=== PATIENT | female | born 1930 | race Caucasian/White ===

== ENCOUNTER → 2016-10-23 | Outpatient (CLI) | payer MEDICARE, OTHER ==
[2016-04-27 08:21] VITALS: BP 123/69
[~2016-10-23] MED LIST: ACET500T68 PO; ALPR0.25 PO; ATEN25TA PO; BUSP15TA PO; CALC300T5 PO; CIPR500T94 PO; CITA20TA9 PO; CLOT15CR4 TP; DOCU-27 PO; HYDR453.3 TP; L. R1CAP PO; MELA3TAB PO; POLY17PO5 PO; PROC10TA57 PO
[2016-10-23 08:23] LABS: BILIRUBIN,URINE NEG (NEG); CLARITY,URINE CLEAR; COLOR,URINE STRAW; GLUCOSE,URINE NEG (NEG)
[2016-10-23 08:24] LABS: BACTERIA,URINE FEW /HPF (0-FEW); NITRITE,URINE NEG (NEG); RBC,URINE OCC /HPF (0-2); UROBILINOGEN,URINE 0.2 mg/dL (0.2 mg/dL)
[2016-10-23 08:25] LABS: SQUAMOUS EPITHELIAL CELL,UR OCC /LPF
== END | disposition home or self-care (01) ==
LOC: SPEC 07:41
PROVIDERS: ATTEND Specialist
DX: N39.0 Urinary tract infection, site not specified (principal)
CPT/HCPCS: 81001

== ENCOUNTER → 2016-12-25 | Outpatient (CLI) | payer MEDICARE, OTHER ==
[2016-04-27 08:21] VITALS: BP 123/69
[~2016-12-25] MED LIST changes: +CULTURELLE CAP1 EACH PO; +DOCU-109 PO; -DOCU-27 PO; -L. R1CAP PO; -MELA3TAB PO; +MELA3TAB2 PO
[2016-12-25 11:06] LABS: BASO % 1 % (0-3); EOS # 0.3 x10^3/uL (0.0-0.7); EOS % 6 % (0-3); HEMATOCRIT 39.7 % (36.0-47.0); HEMOGLOBIN 13.4 g/dL (12.0-15.5); LYMPH # 0.7 x10^3/uL (1.0-4.8); LYMPH % 16 % (24-48); MEAN CORPUSCULAR HEMOGLOBIN 32 pg (25-35); MEAN CORPUSCULAR HGB CONC 34 g/dL (31-37); MEAN CORPUSCULAR VOLUME 96 fL (79-100); MONO # 0.4 x10^3/uL (0.0-1.1); MONO % 11 % (0-9); NEUT # 2.8 x10^3uL (1.8-7.7); NEUT % 66 % (31-73); PLATELET COUNT 135 x10^3/uL (140-400); RED BLOOD COUNT 4.14 x10^6/uL (3.50-5.40); WHITE BLOOD COUNT 4.2 x10^3/uL (4.0-11.0)
[2016-12-25 11:16] LABS: ALBUMIN 3.5 g/dL (3.4-5.0); ALBUMIN/GLOBULIN RATIO 1.1 (1.0-1.7); CALCIUM 9.1 mg/dL (8.5-10.1); CREATININE 0.9 mg/dL (0.6-1.0); GFR 59.1; POTASSIUM 4.1 mmol/L (3.5-5.1); TOTAL BILIRUBIN 0.4 mg/dL (0.2-1.0); TOTAL PROTEIN 6.6 g/dL (6.4-8.2)
== END | disposition home or self-care (01) ==
LOC: SPEC 10:20
PROVIDERS: ATTEND Specialist
DX: D69.49 Other primary thrombocytopenia (principal); E87.1 Hypo-osmolality and hyponatremia
CPT/HCPCS: 36415; 80053; 82306; 83735; 84443; 85027

== ENCOUNTER → 2017-01-13 | Outpatient (CLI) | payer MEDICARE, OTHER ==
[2016-04-27 08:21] VITALS: BP 123/69
[2017-01-14 01:07] LABS: HEMOGLOBIN A1C 4.7 % (4.8-5.6)
== END | disposition home or self-care (01) ==
LOC: SPEC 07:54
PROVIDERS: ATTEND Specialist
DX: I49.9 Cardiac arrhythmia, unspecified (principal); E63.9 Nutritional deficiency, unspecified; E87.1 Hypo-osmolality and hyponatremia
CPT/HCPCS: 36415; 80061; 83036

== ENCOUNTER 2017-06-11 08:33 | Emergency (ER) | payer MEDICARE, OTHER ==
[~2017-06-11] VITALS: Ht 160 cm; Wt 58.2 kg
[2017-06-11] MEDS ORDERED: IV NORMAL SALINE 1,000ML 1,000 ML IV SCH (08:44)
--- NOTE | 2017-06-11 08:51 | PHYS DOC ---
Past History Past Medical History: Arthritis, Cancer, UTI, Other Past Surgical History: Appendectomy, Other Alcohol Use: None Drug Use: None Adult General Chief Complaint Chief Complaint: BACK PAIN OR INJURY HPI HPI Patient is a 87 year old female who presents with complaint of right-sided back and flank pain. Patient states her symptoms started 2 days ago and have progressively worsened. Patient states that her pain became more severe this morning upon awakening states that she is hardly unable to move due to the severity of her pain. Patient does not remember lifting anything heavy and has not had a fall or other trauma to the affected area since onset of symptoms. Patient states that she has had associated nausea but denies dysuria or hematuria. The patient has been taking [id number] medication for her pain with no relief in symptoms. Patient denies chest pain, shortness of breath, abdominal pain, or diarrhea. Patient has had no known fevers. Patient rated her pain as "14 out of 10." Review of Systems Review of Systems Constitutional: Denies fever or chills [] Eyes: Denies change in visual acuity, redness, or eye pain [] HENT: Denies nasal congestion or sore throat [] Respiratory: Denies cough or shortness of breath [] Cardiovascular: Denies chest pain or edema[] GI: Nausea, denies abdominal pain, vomiting, bloody stools or diarrhea [] : Denies dysuria or hematuria [] Musculoskeletal: Right-sided back and flank pain[] Integument: Denies rash or skin lesions [] Neurologic: Denies headache, focal weakness or sensory changes [] All other systems were reviewed and found to be within normal limits, except as documented in this note. Current Medications Current Medications Current Medications Medications (Trade) Dose Ordered Sig/Kelli Start Time Stop Time Status Last Admin Dose Admin Fentanyl Citrate (Fentanyl 2ml Vial) 50 mcg PRN Q15MIN PRN 06/11/17 08:45 06/12/17 08:44 UNV Metoclopramide HCl (Reglan Vial) 10 mg 1X ONCE 06/11/17 08:45 06/11/17 08:46 UNV Allergies Allergies Allergies Coded Allergies Type Severity Reaction Last Updated Verified Influenza Virus Vaccines Allergy Severe 04/24/16 Yes carbamide peroxide Allergy Severe 04/23/16 Yes pneumococcal vaccine Allergy Severe 04/24/16 Yes sulfite Allergy Severe 04/23/16 Yes Penicillins Allergy Intermediate 04/24/16 Yes aspirin Allergy Intermediate 04/24/16 Yes ibuprofen Allergy Intermediate 04/24/16 Yes ondansetron Allergy Intermediate Unknown 01/30/16 Yes promethazine Allergy Intermediate 04/24/16 No diphenhydramine Adverse Reaction Intermediate 04/24/16 Yes Uncoded Allergies Type Severity Reaction Last Updated Verified COLD AND COUGH MED Allergy Unknown 01/30/16 Physical Exam Physical Exam Constitutional: Alert, afebrile, appears in moderate to severe discomfort. [] HENT: Normocephalic, atraumatic, bilateral external ears normal, oropharynx moist, no oral exudates, nose normal. [] Eyes: PERRLA, EOMI, conjunctiva normal, no discharge. [] Neck: Normal range of motion, no tenderness, supple, no stridor. [] Cardiovascular:Heart rate regular rhythm, no murmur [] Lungs & Thorax: Bilateral breath sounds clear to auscultation [] Abdomen: Bowel sounds normal, soft, no tenderness, no masses, no pulsatile masses. [] Skin: Warm, dry, no erythema, no rash. [] Back: Scoliotic curvature of the spine, no midline tenderness, right CVA tenderness present, no flank ecchymosis. [] Extremities: No tenderness, no cyanosis, no clubbing, ROM intact, no edema. [] Neurologic: Alert and oriented X 3, normal motor function, normal sensory function, no focal deficits noted. [] Current Patient Data Vital Signs Vital Signs Date Time Temp Pulse Resp B/P (MAP) Pulse Ox O2 Delivery O2 Flow Rate FiO2 06/11/17 09:09 20 94 Room Air 06/11/17 08:33 97.7 73 Lab Results Laboratory Tests Test 06/11/17 09:01 06/11/17 10:45 White Blood Count 5.6 x10^3/uL Red Blood Count 4.48 x10^6/uL Hemoglobin 14.7 g/dL Hematocrit 42.5 % Mean Corpuscular Volume 95 fL Mean Corpuscular Hemoglobin 33 pg Mean Corpuscular Hemoglobin Concent 35 g/dL Red Cell Distribution Width 12.7 % Platelet Count 144 x10^3/uL Neutrophils (%) (Auto) 74 % Lymphocytes (%) (Auto) 11 % Monocytes (%) (Auto) 10 % Eosinophils (%) (Auto) 4 % Basophils (%) (Auto) 1 % Neutrophils # (Auto) 4.2 x10^3uL Lymphocytes # (Auto) 0.6 x10^3/uL Monocytes # (Auto) 0.6 x10^3/uL Eosinophils # (Auto) 0.2 x10^3/uL Basophils # (Auto) 0.0 x10^3/uL Sodium Level 132 mmol/L Potassium Level 3.7 mmol/L Chloride Level 94 mmol/L Carbon Dioxide Level 31 mmol/L Anion Gap 7 Blood Urea Nitrogen 16 mg/dL Creatinine 0.8 mg/dL Estimated GFR (Cockcroft-Gault) 67.5 BUN/Creatinine Ratio 20 Glucose Level 143 mg/dL Calcium Level 9.3 mg/dL Total Bilirubin 0.5 mg/dL Aspartate Amino Transf (AST/SGOT) 28 U/L Alanine Aminotransferase (ALT/SGPT) 22 U/L Alkaline Phosphatase 95 U/L Total Protein 7.4 g/dL Albumin 3.6 g/dL Albumin/Globulin Ratio 0.9 Lipase 127 U/L Urine Collection Type Void Urine Color Straw Urine Clarity Cloudy Urine pH 8.0 Urine Specific [place] 1.020 Urine Protein Neg Urine Glucose (UA) Neg mg/dL Urine Ketones (Stick) Neg mg/dL Urine Blood Trace Urine Nitrite Neg Urine Bilirubin Neg Urine Urobilinogen Dipstick 0.2 mg/dL Urine Leukocyte Esterase Neg Urine RBC 3-5 /HPF Urine WBC Occ /HPF Urine Squamous Epithelial Cells Occ /LPF Urine Amorphous Sediment Present /HPF Urine Bacteria Few /HPF Urine Mucus Slight /LPF Current Medications Medications (Trade) Dose Ordered Sig/Kelli Route PRN Reason Start Time Stop Time Status Last Admin Dose Admin Fentanyl Citrate (Fentanyl 2ml Vial) 50 mcg PRN Q15MIN PRN IV PAIN GREATER THAN 3/10 06/11/17 08:45 06/12/17 08:44 06/11/17 10:36 Sodium Chloride 1,000 ml @ 1,000 mls/hr Q1H IV 06/11/17 08:44 06/11/17 09:43 DC 06/11/17 09:04 Metoclopramide HCl (Reglan Vial) 10 mg 1X ONCE IV 06/11/17 09:10 06/11/17 09:11 DC 06/11/17 09:05 EKG EKG Not performed[] Radiology/Procedures Radiology/Procedures [address] [place] [address] IMAGING REPORT Signed PATIENT: AJAY CAMPBELL ACCOUNT: [id number] : 1930 LOCATION: ER AGE: 87 SEX: F EXAM STATUS: REG ER ORD. PHYSICIAN: CARL GARDNER MD REASON: right flank pain PROCEDURE: CT ABDOMEN PELVIS WO CONTRAST CT of the abdomen and pelvis without contrast, 06/11/2017: History: Right flank and back pain Noncontrast scans were obtained utilizing the renal stone protocol. There are bilateral intrarenal calculi. The largest of these lies on the left and measures 16 x 6 mm. Several small low density renal lesions on the right are compatible with cysts. The kidneys show no evidence of hydronephrosis. The ureters are not dilated. No ureteral calculus is identified. There are multiple vascular calcifications in the pelvis. The urinary bladder is unremarkable. The heart is enlarged. There are multiple coronary artery calcifications. There is moderate streaky atelectasis in scarring in the lung bases. There is a small cyst in the lateral aspect of the right lobe of the liver. The unopacified liver is otherwise unremarkable. No gallbladder abnormality is seen. The pancreas cannot be clearly from unopacified bowel. The spleen is of normal size. There is moderate calcific plaquing of the abdominal aorta and its branches without evidence of aneurysm. No abdominal or pelvic adenopathy is seen. The uterus is unremarkable. There are multiple colonic diverticula, most numerous in the sigmoid region. There is a moderate amount of stool in the ascending colon. The appendix is not clearly visualized. No dilated appendix is identified. No free air or free fluid is present in the abdomen or pelvis. There is atrophy of the rectus abdominis musculature, with moderate anterior fascial bulging at the midline. Surgical clips in this region may be secondary to previous hernia repair. There is a small inguinal hernia on the right containing a nonobstructed bowel loop. There is a moderate thoracolumbar scoliosis with multilevel degenerative change. There are multiple lumbar and lower thoracic vertebral body fractures. Vertebroplasty changes are evident at similar findings were present on the study of 01/30/2016. IMPRESSION: 1. Bilateral nonobstructing intrarenal calculi. 2. No obstructing urinary tract calculus is identified. 3. Moderate colonic diverticulosis. 4. Small right inguinal hernia containing a nonobstructed bowel loops. 5. Moderate bibasilar atelectasis. 6. Multiple chronic vertebral compression fractures. 7. Other miscellaneous chronic findings as described above PQRS Compliance Statement: One or more of the following individualized dose reduction techniques were utilized for this examination: 1. Automated exposure control 2. Adjustment of the mA and/or kV according to patient size 3. Use of iterative reconstruction technique DICTATED AND SIGNED BY: AUGUST WEATHERS MD DATE: 06/11/17 0926 CC: CARL GARDNER MD; TITI BIRD MD ~ [] Course & Med Decision Making Course & Med Decision Making Pertinent Labs and Imaging studies reviewed. (See chart for details) Patient was treated with IV fluids, fentanyl, and Zofran in the emergency department. The patient's emergency department workup shows no evidence of acute infection or acute fracture in the back. The patient's symptoms appear consistent with a mid back strain. The patient will be treated with hydrocodone for her symptoms. The patient states that she does not want to be admitted to the hospital and would like to be discharged home or she will continue her care at the [facility]. Advised patient follow-up to primary doctor in 3-4 days for reevaluation and return to emergency department for any worsening symptoms. Patient was understanding and in agreement with treatment plan. Dragon Disclaimer Dragon Disclaimer This electronic medical record was generated, in whole or in part, using a voice recognition dictation system. Departure Departure: Impression: Primary Impression: Back strain Disposition: 01 HOME, SELF-CARE Condition: IMPROVED Referrals: TITI BIRD MD (PCP) Patient Instructions: Back Pain, Adult Additional Instructions: Follow-up to primary doctor in 3-4 days for reevaluation. Return to the emergency department for any worsening symptoms. Scripts Hydrocodone Bit/Acetaminophen (NORCO 5-325 TABLET) 1 Each Tablet 1 TAB PO Q4-6HRS Y for PAIN, #20 TAB Prov: CARL GARDNER MD 06/11/17 Problem Qualifiers Primary Impression: Back strain Encounter type: initial encounter Qualified Codes: S39.012A - Strain of muscle, fascia and tendon of lower back, initial encounter CARL GARDNER MD Jun 11, 2017 08:51
[2017-06-11] MEDS ORDERED: METOCLOPRAMIDE HCL 10 MG/2 ML VIAL. IV ONE (09:10)
[2017-06-11 09:16] LABS: BASO % 1 % (0-3); EOS # 0.2 x10^3/uL (0.0-0.7); EOS % 4 % (0-3); HEMATOCRIT 42.5 % (36.0-47.0); HEMOGLOBIN 14.7 g/dL (12.0-15.5); LYMPH # 0.6 x10^3/uL (1.0-4.8); LYMPH % 11 % (24-48); MEAN CORPUSCULAR HEMOGLOBIN 33 pg (25-35); MEAN CORPUSCULAR HGB CONC 35 g/dL (31-37); MEAN CORPUSCULAR VOLUME 95 fL (79-100); MONO # 0.6 x10^3/uL (0.0-1.1); MONO % 10 % (0-9); NEUT # 4.2 x10^3uL (1.8-7.7); NEUT % 74 % (31-73); PLATELET COUNT 144 x10^3/uL (140-400); RED BLOOD COUNT 4.48 x10^6/uL (3.50-5.40); RED CELL DISTRIBUTION WIDTH 12.7 % (11.5-14.5); WHITE BLOOD COUNT 5.6 x10^3/uL (4.0-11.0)
[2017-06-11 09:26] LABS: ALBUMIN 3.6 g/dL (3.4-5.0); ALBUMIN/GLOBULIN RATIO 0.9 (1.0-1.7); CALCIUM 9.3 mg/dL (8.5-10.1); CREATININE 0.8 mg/dL (0.6-1.0); GFR 67.5; POTASSIUM 3.7 mmol/L (3.5-5.1); TOTAL BILIRUBIN 0.5 mg/dL (0.2-1.0); TOTAL PROTEIN 7.4 g/dL (6.4-8.2)
--- NOTE | 2017-06-11 09:46 | RAD ---
CT of the abdomen and pelvis without contrast, 06/11/2017: History: Right flank and back pain Noncontrast scans were obtained utilizing the renal stone protocol. There are bilateral intrarenal calculi. The largest of these lies on the left and measures 16 x 6 mm. Several small low density renal lesions on the right are compatible with cysts. The kidneys show no evidence of hydronephrosis. The ureters are not dilated. No ureteral calculus is identified. There are multiple vascular calcifications in the pelvis. The urinary bladder is unremarkable. The heart is enlarged. There are multiple coronary artery calcifications. There is moderate streaky atelectasis in scarring in the lung bases. There is a small cyst in the lateral aspect of the right lobe of the liver. The unopacified liver is otherwise unremarkable. No gallbladder abnormality is seen. The pancreas cannot be clearly from unopacified bowel. The spleen is of normal size. There is moderate calcific plaquing of the abdominal aorta and its branches without evidence of aneurysm. No abdominal or pelvic adenopathy is seen. The uterus is unremarkable. There are multiple colonic diverticula, most numerous in the sigmoid region. There is a moderate amount of stool in the ascending colon. The appendix is not clearly visualized. No dilated appendix is identified. No free air or free fluid is present in the abdomen or pelvis. There is atrophy of the rectus abdominis musculature, with moderate anterior fascial bulging at the midline. Surgical clips in this region may be secondary to previous hernia repair. There is a small inguinal hernia on the right containing a nonobstructed bowel loop. There is a moderate thoracolumbar scoliosis with multilevel degenerative change. There are multiple lumbar and lower thoracic vertebral body fractures. Vertebroplasty changes are evident at similar findings were present on the study of 01/30/2016. IMPRESSION: 1. Bilateral nonobstructing intrarenal calculi. 2. No obstructing urinary tract calculus is identified. 3. Moderate colonic diverticulosis. 4. Small right inguinal hernia containing a nonobstructed bowel loops. 5. Moderate bibasilar atelectasis. 6. Multiple chronic vertebral compression fractures. 7. Other miscellaneous chronic findings as described above PQRS Compliance Statement: One or more of the following individualized dose reduction techniques were utilized for this examination: 1. Automated exposure control 2. Adjustment of the mA and/or kV according to patient size 3. Use of iterative reconstruction technique
[2017-06-11 11:05] LABS: AMORPHOUS SEDIMENT,UR PRESENT /HPF; BACTERIA,URINE FEW /HPF (0-FEW); BILIRUBIN,URINE NEG (NEG); CLARITY,URINE CLOUDY; COLOR,URINE STRAW; GLUCOSE,URINE NEG (NEG); NITRITE,URINE NEG (NEG); SQUAMOUS EPITHELIAL CELL,UR OCC /LPF; UROBILINOGEN,URINE 0.2 mg/dL (0.2 mg/dL); WBC,URINE OCC /HPF (0-4)
[2017-06-11] MEDS ORDERED: HYDR-971 PO (11:11)
[2017-06-11 11:17] VITALS: BP 148/95
== END 2017-06-11 11:17 | disposition home or self-care (01) ==
LOC: ER 08:33
DX: S39.012A Strain of muscle, fascia and tendon of lower back, initial encounter (principal); X58.XXXA Exposure to other specified factors, initial encounter; Y93.89 Activity, other specified; Y99.8 Other external cause status; Y92.89 Other specified places as the place of occurrence of the external cause; Z87.440 Personal history of urinary (tract) infections; Z88.6 Allergy status to analgesic agent; Z88.4 Allergy status to anesthetic agent; Z88.0 Allergy status to penicillin; Z88.2 Allergy status to sulfonamides; Z88.7 Allergy status to serum and vaccine; Z88.8 Allergy status to other drugs, medicaments and biological substances
CPT/HCPCS: 36415; 74176; 80053; 81001; 83690; 85025; 96361; 96374; 96375; 96376; 99285; J2765; J3010; J7030

== ENCOUNTER 2018-01-12 15:18 | Inpatient (IN) | payer MEDICARE, OTHER ==
[~2018-01-12] VITALS: Ht 157.5 cm; Wt 62.3 kg
[~2018-01-12 15:18] MED LIST changes: +HYDR-971 PO
[2018-01-12] MEDS ORDERED: IOHEXOL 300 MG/ML 75 ML VIAL. IV ONE (16:30)
--- NOTE | 2018-01-12 16:51 | PHYS DOC ---
Past History Past Medical History: Anxiety, Arthritis, Cancer, Depression, GERD, UTI, Other Past Surgical History: Appendectomy, Tonsillectomy, Other Alcohol Use: None Drug Use: None Adult General Chief Complaint Chief Complaint: ABNORMAL LABS [facility] HPI Patient is an 87-year-old female who presents for evaluation of abnormal lab results. She was seen at Dr. Valentin Bird's office where she was found to have hyponatremia and leukocytosis. She is complaining to me of having several episodes of diarrhea over the last few days and states that she had 6 today. His recent antibiotic use or history of C. difficile infection. She states that she does not want to be admitted to the hospital. She has some generalized abdominal discomfort and states that the diarrhea has caused her to have some rectal discomfort as well. She denies any rectal bleeding. She also denies fevers or chills, nausea or vomiting, chest pain or shortness of breath, or dysuria. Review of Systems Review of Systems Constitutional: Denies fever or chills [] Eyes: Denies change in visual acuity, redness, or eye pain [] HENT: Denies nasal congestion or sore throat [] Respiratory: Denies cough or shortness of breath [] Cardiovascular: No additional information not addressed in HPI [] GI: Denies nausea, vomiting, bloody stools +abd discomfort and diarrhea : Denies dysuria or hematuria [] Musculoskeletal: Denies back pain or joint pain [] Integument: Denies rash or skin lesions [] Neurologic: Denies headache, focal weakness or sensory changes [] Endocrine: Denies polyuria or polydipsia [] All other systems were reviewed and found to be within normal limits, except as documented in this note. Current Medications Current Medications Current Medications Medications (Trade) Dose Ordered Sig/Kelli Start Time Stop Time Status Last Admin Dose Admin Iohexol (Omnipaque 300 Mg/ml) 75 ml 1X ONCE 01/12/18 16:30 01/12/18 16:31 DC Allergies Allergies Allergies Coded Allergies Type Severity Reaction Last Updated Verified Influenza Virus Vaccines Allergy Severe 04/24/16 Yes carbamide peroxide Allergy Severe 04/23/16 Yes pneumococcal vaccine Allergy Severe 04/24/16 Yes sulfite Allergy Severe 04/23/16 Yes Penicillins Allergy Intermediate 04/24/16 Yes aspirin Allergy Intermediate 04/24/16 Yes ibuprofen Allergy Intermediate 04/24/16 Yes ondansetron Allergy Intermediate Unknown 01/30/16 Yes promethazine Allergy Intermediate 04/24/16 No diphenhydramine Adverse Reaction Intermediate 04/24/16 Yes Uncoded Allergies Type Severity Reaction Last Updated Verified COLD AND COUGH MED Allergy Unknown 01/30/16 Physical Exam Physical Exam Constitutional: Well developed, well nourished, no acute distress, non-toxic appearance. [] HENT: Normocephalic, atraumatic, bilateral external ears normal, oropharynx moist, no oral exudates, nose normal. [] Eyes: PERRLA, EOMI, conjunctiva normal, no discharge. [] Neck: Normal range of motion, no tenderness, supple, no stridor. [] Cardiovascular:Heart rate regular rhythm, no murmur [] Lungs & Thorax: Bilateral breath sounds clear to auscultation [] Abdomen: no masses, no pulsatile masses. [] mild generalized abd tenderness, no focal ttp, soft, hyperactive bs, no guarding, no rigidity Skin: Warm, dry, no erythema, no rash. [] Back: No tenderness, no CVA tenderness. [] Extremities: No tenderness, no cyanosis, no clubbing, ROM intact, no edema. [] Neurologic: Alert and oriented X 3, normal motor function, normal sensory function, no focal deficits noted. [] Psychologic: Affect normal, judgement normal, mood normal. [] Current Patient Data Vital Signs Vital Signs Date Time Temp Pulse Resp B/P (MAP) Pulse Ox O2 Delivery O2 Flow Rate FiO2 01/12/18 15:52 98.1 85 22 97 Room Air EKG EKG [] Radiology/Procedures Radiology/Procedures [address] [address] IMAGING REPORT Signed PATIENT: AJAY CAMPBELL ACCOUNT: [id number] : 1930 LOCATION: ER AGE: 87 SEX: F EXAM STATUS: REG ER ORD. PHYSICIAN: FABIOLA IZAGUIRRE DO REASON: abd pain, diarrhea, leukocytosis PROCEDURE: CT ABD PELV W/ IV CONTRST ONLY Indication:ABDOMINAL PAIN, DIARRHEA, NAUSEA, leukocytosis. HX GERD, BRST CA, UTI. APPDX REMOVED. TECHNIQUE: CT abdomen and pelvis with IV contrast with multiplanar reformats. COMPARISON: 06/11/2017 FINDINGS: Heart is normal in size. No pericardial or pleural effusion. Clear lung bases. 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 Otherwise, liver, spleen, gallbladder, pancreas, adrenals are within normal limits. Bilateral nonobstructing renal stones, the largest in the right measuring 8 mm and on the left measuring 1.5 cm. Multiple low attenuating lesions are seen in the right kidney most likely simple cysts. No hydronephrosis. No retroperitoneal or pelvic adenopathy. Scattered diffuse atherosclerotic calcifications are seen of the abdominal aorta. Tortuous abdominal aorta noted. Moderate calcification seen in the region of the bilateral renal arteries. No bowel obstruction. There is circumferential wall thickening of the rectum with perirectal inflammatory changes. Urinary bladder within normal limits. Anteverted uterus. The endometrial stripe measures 5 mm in thickness which is top normal for patient's age. No ascites or free pelvic fluid. Diffuse osteopenia. Moderate scoliosis of the thoracolumbar spine with multiple compression deformities some of which show evidence of prior kyphoplasty. The compression deformities are stable when compared to previous study from May 2017. IMPRESSION: 1. Circumferential wall thickening of the rectum with perirectal inflammation suggests colitis. Rectal malignancy is also in the differential. Nonemergent colonoscopy recommended. 2. Bilateral nonobstructing renal stones. Electronically signed by: Aly Spencer DO (01/12/2018 5:46 PM) [facility] DICTATED AND SIGNED BY: ALY SPENCER DO DATE: 01/12/18 2623 CC: FABIOLA IZAGUIRRE DO; TITI BIRD MD ~ Course & Med Decision Making Course & Med Decision Making Pertinent Labs and Imaging studies reviewed. (See chart for details) Current Medications Medications (Trade) Dose Ordered Sig/Kelli Route PRN Reason Start Time Stop Time Status Last Admin Dose Admin Iohexol (Omnipaque 300 Mg/ml) 75 ml 1X ONCE IV 01/12/18 16:30 01/12/18 16:31 DC 01/12/18 17:00 Zinc Oxide (Desitin Diaper Rash 40%) 1 mile 1X ONCE TP 01/12/18 17:30 01/12/18 17:31 DC 01/12/18 17:39 @1800 - patient updated on lab and imaging results and agrees with plan to be admitted. Hospitalist patient Dr. Mesa accepts the Med/Surg admission. Levaquin , Flagyl, and fluids ordered. Is pending. Dragon Disclaimer Dragon Disclaimer This electronic medical record was generated, in whole or in part, using a voice recognition dictation system. Departure Departure: Impression: Primary Impression: Acute colitis Additional Impressions: Leukocytosis Hyponatremia Diarrhea Disposition: ADMITTED INPATIENT Admitting Physician: Salud Souza Condition: STABLE Referrals: TITI BIRD MD (PCP) Problem Qualifiers FABIOLA IZAGUIRRE DO Jan 12, 2018 16:51
[2018-01-12] MEDS ORDERED: ZINC OXIDE/COD LIVER OIL 40% TOPICAL OINTMENT 56GM TUBE. TP ONE (17:30)
--- NOTE | 2018-01-12 17:49 | RAD ---
Indication:ABDOMINAL PAIN, DIARRHEA, NAUSEA, leukocytosis. HX GERD, BRST CA, UTI. APPDX REMOVED. TECHNIQUE: CT abdomen and pelvis with IV contrast with multiplanar reformats. COMPARISON: 06/11/2017 FINDINGS: Heart is normal in size. No pericardial or pleural effusion. Clear lung bases. 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 Otherwise, liver, spleen, gallbladder, pancreas, adrenals are within normal limits. Bilateral nonobstructing renal stones, the largest in the right measuring 8 mm and on the left measuring 1.5 cm. Multiple low attenuating lesions are seen in the right kidney most likely simple cysts. No hydronephrosis. No retroperitoneal or pelvic adenopathy. Scattered diffuse atherosclerotic calcifications are seen of the abdominal aorta. Tortuous abdominal aorta noted. Moderate calcification seen in the region of the bilateral renal arteries. No bowel obstruction. There is circumferential wall thickening of the rectum with perirectal inflammatory changes. Urinary bladder within normal limits. Anteverted uterus. The endometrial stripe measures 5 mm in thickness which is top normal for patient's age. No ascites or free pelvic fluid. Diffuse osteopenia. Moderate scoliosis of the thoracolumbar spine with multiple compression deformities some of which show evidence of prior kyphoplasty. The compression deformities are stable when compared to previous study from May 2017. IMPRESSION: 1. Circumferential wall thickening of the rectum with perirectal inflammation suggests colitis. Rectal malignancy is also in the differential. Nonemergent colonoscopy recommended. 2. Bilateral nonobstructing renal stones. Electronically signed by: Aly Spencer DO (01/12/2018 5:46 PM) [facility]
[2018-01-12] MEDS ORDERED: IV NORMAL SALINE 1,000ML 1,000 ML IV ONE (18:00)
[2018-01-12] MEDS ORDERED: MORPHINE SULFATE 2 MG/ML DISP.SYRIN. IV PRN (18:15)
[2018-01-12] MEDS ORDERED: ACETAMINOPHEN 325 MG TABLET PO PRN (18:15)
[2018-01-12] MEDS: IV NORMAL SALINE 1,000ML 1,000 ML IV SCH (18:30)
[2018-01-12] MEDS: ONDANSETRON PF 4 MG/2 ML VIAL. IV PRN ×2 (18:31→18:38)
[2018-01-12 19:20] VITALS: BP 146/86
[2018-01-12 20:28] LABS: BASO # 0.1 x10^3/uL (0.0-0.2); BASO % 1 % (0-3); EOS # 0.1 x10^3/uL (0.0-0.7); EOS % 1 % (0-3); HEMATOCRIT 39.5 % (36.0-47.0); HEMOGLOBIN 13.3 g/dL (12.0-15.5); LYMPH # 0.8 x10^3/uL (1.0-4.8); LYMPH % 6 % (24-48); MEAN CORPUSCULAR HEMOGLOBIN 31 pg (25-35); MEAN CORPUSCULAR HGB CONC 34 g/dL (31-37); MEAN CORPUSCULAR VOLUME 91 fL (79-100); MONO # 0.9 x10^3/uL (0.0-1.1); MONO % 6 % (0-9); NEUT # 12.7 x10^3uL (1.8-7.7); NEUT % 87 % (31-73); PLATELET COUNT 162 x10^3/uL (140-400); RED BLOOD COUNT 4.36 x10^6/uL (3.50-5.40); WHITE BLOOD COUNT 14.6 x10^3/uL (4.0-11.0)
[2018-01-12 20:39] LABS: ALBUMIN 3.3 g/dL (3.4-5.0); ALBUMIN/GLOBULIN RATIO 0.9 (1.0-1.7); CALCIUM 9.1 mg/dL (8.5-10.1); CREATININE 0.9 mg/dL (0.6-1.0); POTASSIUM 3.1 mmol/L (3.5-5.1); TOTAL BILIRUBIN 0.9 mg/dL (0.2-1.0); TOTAL PROTEIN 6.9 g/dL (6.4-8.2)
[2018-01-12 20:48] LABS: BILIRUBIN,URINE NEG (NEG); CLARITY,URINE CLEAR; COLOR,URINE YELLOW; GLUCOSE,URINE NEG (NEG)
[2018-01-12 20:49] LABS: BACTERIA,URINE 0 /HPF (0-FEW); HYALINE CASTS, URINE FEW /HPF; NITRITE,URINE NEG (NEG); SQUAMOUS EPITHELIAL CELL,UR FEW /LPF; UROBILINOGEN,URINE 0.2 mg/dL (0.2 mg/dL)
[2018-01-12] MEDS ORDERED: HYDR-971 PO (21:33)
[2018-01-12] MEDS ORDERED: NYST15PO9 TP (21:33)
[2018-01-12] MEDS ORDERED: LACT1CAP6 PO (21:33)
[2018-01-12] MEDS ORDERED: HYDR15CR20 TP (21:33)
[2018-01-12] MEDS ORDERED: SUCR1ORA5 PO (21:33)
[2018-01-12] MEDS ORDERED: PHEN28OI RC (21:33)
[2018-01-12] MEDS ORDERED: CALC500T PO (21:33)
[2018-01-12] MEDS ORDERED: TIZA4TAB PO (21:33)
[2018-01-12] MEDS ORDERED: BUSP5TAB PO (21:33)
[2018-01-12] MEDS ORDERED: SODI45SP4 NS (21:33)
[2018-01-12] MEDS ORDERED: ACET500T68 PO (21:33)
[2018-01-12] MEDS ORDERED: MELA3TAB2 PO (21:33)
[2018-01-12] MEDS ORDERED: SERT50TA PO (21:33)
[2018-01-12] MEDS: PROCHLORPERAZINE 10 MG/2 ML VIAL. IV PRN (22:17)
[2018-01-12] MEDS: MELATONIN 3 MG TABLET PO PRN (22:18)
[2018-01-12] MEDS: POTASSIUM CHLORIDE 20MEQ 100 ML IV SCH (22:20)
[2018-01-12 22:24] VITALS: BP 109/72
[2018-01-13] MEDS: POTASSIUM CHLORIDE 20MEQ 100 ML IV SCH (00:27)
[2018-01-13] MEDS: IV NORMAL SALINE 1,000ML 1,000 ML IV SCH (02:29)
[2018-01-13 05:13] VITALS: BP 146/88
[2018-01-13] MEDS: PROCHLORPERAZINE 10 MG/2 ML VIAL. IV PRN ×3 (05:47→20:07)
[2018-01-13] MEDS: POTASSIUM CL 40MEQ IN 0.9%NACL 1,000 ML IV SCH ×2 (05:47→20:07)
[2018-01-13 06:38] LABS: BASO % 0 % (0-3); EOS % 0 % (0-3); HEMATOCRIT 35.9 % (36.0-47.0); HEMOGLOBIN 12.4 g/dL (12.0-15.5); LYMPH # 0.4 x10^3/uL (1.0-4.8); LYMPH % 3 % (24-48); MEAN CORPUSCULAR HEMOGLOBIN 31 pg (25-35); MEAN CORPUSCULAR HGB CONC 34 g/dL (31-37); MEAN CORPUSCULAR VOLUME 90 fL (79-100); MONO # 1.2 x10^3/uL (0.0-1.1); MONO % 9 % (0-9); NEUT # 11.9 x10^3uL (1.8-7.7); NEUT % 88 % (31-73); PLATELET COUNT 139 x10^3/uL (140-400); RED BLOOD COUNT 3.99 x10^6/uL (3.50-5.40); RED CELL DISTRIBUTION WIDTH 13.6 % (11.5-14.5); WHITE BLOOD COUNT 13.5 x10^3/uL (4.0-11.0)
[2018-01-13 06:49] LABS: ALBUMIN 2.7 g/dL (3.4-5.0); ALBUMIN/GLOBULIN RATIO 0.8 (1.0-1.7); CALCIUM 8.6 mg/dL (8.5-10.1); CREATININE 0.8 mg/dL (0.6-1.0); GFR 67.5; MAGNESIUM 1.5 mg/dL (1.8-2.4); POTASSIUM 3.4 mmol/L (3.5-5.1); TOTAL BILIRUBIN 0.7 mg/dL (0.2-1.0)
[2018-01-13] MEDS ORDERED: MAGNESIUM SULFATE 2GM 50 ML IV ONE (11:30)
[2018-01-13 11:47] VITALS: BP 136/80
--- NOTE | 2018-01-13 12:05 | HP ---
ADMIT DATE: 01/12/2018 HISTORY OF PRESENT ILLNESS: The patient is an 87-year-old female patient, resident at the [facility] who apparently was seen at her primary care physician and was found to be hyponatremic and has leukocytosis. She did complain of several episodes of diarrhea over the last few days and stated that she has had 3 episodes of diarrhea on admission day. She denied any recent use of antibiotic or recent history of C. diff colitis. She stated that she does not want to be admitted to the hospital. However, she did have generalized abdominal discomfort; however, she had dry heaves, but denied any nausea or vomiting. Denied any hematemesis, melena or hematochezia. Denied any chills, rigors or fever. She was extensively investigated in the Emergency Room, was found to have acute colitis together with leukocytosis, hyponatremia, and diarrhea for which she was started on IV normal saline with potassium. Her CT scan of the abdomen showed that she has circumferential wall thickening of the rectum with perirectal inflammation suggesting colitis, rectal malignancy is also in the differential, nonemergent colonoscopy is recommended. She has also bilateral nonobstructing renal stones. PAST MEDICAL HISTORY: Significant for angiodysplasia of the colon without hemorrhage, anxiety, gastroesophageal reflux disease, primary thrombocytopenia, dry eye syndrome, cardiac arrhythmias, diverticulosis, depression and anxiety. PAST SURGICAL HISTORY: Unremarkable except for colonoscopy. ALLERGIES: SHE HAS AN EXTENSIVE LIST OF ALLERGIES. SHE IS ALLERGIC TO COLD AND COUGH MEDICINE, INFLUENZA VIRUS VACCINE, PENICILLIN, ASPIRIN, CARBAMIDE PEROXIDE, DIPHENHYDRAMINE, IBUPROFEN, ONDANSETRON, PNEUMOCOCCAL VACCINE, PROMETHAZINE, AND SULFA DRUGS. MEDICATIONS: She is currently on following medications: She is on tizanidine 2 mg 3 times a day and atenolol 12.5 mg once a day, hydrocodone/APAP 5/325 one tablet every 6 hours, Tylenol 500 mg every 4 hours, sertraline 50 mg daily, alprazolam 0.25 mg 4 times a day, buspirone 5 mg twice a day, calcium carbonate 1 tablet twice a day. She is on sodium chloride for Saline Mist 2 sprays to each nostril twice a day, lactobacillus acidophilus 1 capsule daily. She is on Colace 100 mg at bedtime, polyethylene glycol 17 grams daily p.r.n. for constipation, prochlorperazine maleate 10 mg every 6 hours and Carafate 1 gram in 10 mL oral suspension over 4 days. She is on clotrimazole 15 grams apply topically twice a day, nystatin powder applied topically twice a day, hydrocortisone cream as needed for itching, melatonin 3 mg at bedtime. REVIEW OF SYSTEMS: As per history of present illness. PHYSICAL EXAMINATION: GENERAL: On arrival, she looked pale, but no jaundice or cyanosis. VITAL SIGNS: Her heart rate was 85, blood pressure 146/86, temperature was 98.1, respiratory rate 22 and oxygen saturation was 97% on room air. HEENT: Showed normocephalic, atraumatic. NECK: Supple. HEART: Showed normal first and second heart sounds with no gallop, rub or murmur. CHEST: Clear to auscultation. No crepitation or rhonchi. ABDOMEN: Distended, soft, nontender. No guarding or rigidity. No organomegaly. All hernial orifices intact. Bowel sounds normal. NEUROLOGIC: She is awake, alert, responding appropriately. Cranial nerves intact. EXTREMITIES: She moves extremities without difficulty. LABORATORY DATA: Her lab work on arrival showed a white cell count 14,600, hemoglobin 13, hematocrit 39, MCV 91, and platelet count of 162,000. Her chemistry showed a serum sodium of 127, potassium 3.1, chloride 92, bicarbonate 25, anion gap of 10, BUN 20, creatinine 0.9, estimated GFR was 59 mL per minute. Her calcium was 9.1. Total bilirubin, AST, ALT, alkaline phosphatase slightly elevated. Total protein was 6.9, albumin 3.3 and serum lipase was 1.7. Urinalysis was unremarkable. 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 She has dry heaves. She was found to have hyponatremia, hypokalemia, slightly deranged liver enzymes. She was started on IV normal saline with potassium chloride. We will monitor her lab work closely. Her stool was sent for C. diff, the result of which is still pending. She is now on levofloxacin as well as IV Flagyl. NARESH WHITT MD DR: Yassine JOB#: [id number] / [id number]
--- NOTE | 2018-01-13 12:46 | PN ---
DATE: 01/13/2018 SUBJECTIVE: The patient is resting slightly propped up in bed, in no apparent distress. She is awake, alert. On questioning her, she continued to have dry heaves, but no vomiting. She has mild abdominal tenderness and continued to have diarrhea, though she denied any chills, rigors or fever. She was admitted yesterday and was found to have proctocolitis. Stool specimen was sent for C. diff toxin, the result of which is still pending. She was started on IV Levaquin and Flagyl together with normal saline with potassium chloride to replenish her both potassium and sodium. OBJECTIVE: GENERAL: When I saw her today, she looked somewhat pale, but no jaundice, cyanosis, or thyromegaly. No jugular venous distension. No limb edema. VITAL SIGNS: Her heart rate was 98, blood pressure 146/88, temperature was 97.9, respiratory rate 26 and oxygen saturation was 96% on room air. HEAD, EYES, EARS, NOSE AND THROAT: Showed normocephalic, atraumatic. NECK: Supple. HEART: Showed normal first and second sounds. No gallop, rub or murmur. CHEST: Clear to auscultation. No crepitation or rhonchi. ABDOMEN: Distended, soft, nontender. NEUROLOGIC: She is awake, alert, responding appropriately. All cranial nerves intact. He moves extremities without difficulty, though she is mostly bed bound. Her intake over the last 24 hours was 1980, output was 500. LABORATORY DATA: As of this morning, her white cell count is down to 13,500, hemoglobin 12, hematocrit 36, MCV 90 and platelet count of 139,000. Her chemistry showed a serum sodium slightly high at 128, potassium 3.4, chloride 96, bicarbonate 24, anion gap of 8, BUN 18, creatinine 0.8, estimated GFR was 67 mL per minute. Her glucose 110, calcium was 8.6, magnesium was 1.5. Total bilirubin, AST, ALT, alkaline phosphatase were normal. Total protein 6, albumin was 2.7. ASSESSMENT: In summary, this is an 87-year-old female patient who came in with recurrent bouts of diarrhea, was found to have proctocolitis likely due to Clostridium difficile toxins, the result of which is still pending. She was also noted to be markedly hypokalemic, hypomagnesemic. PLAN: To continue the IV fluid in the form of normal saline with 40 mEq of potassium chloride. Continue with IV Flagyl and Cipro and Levaquin. Monitor her labs closely and decide on further management accordingly. NARESH WHITT MD DR: CARL/jack JOB#: [id number] / [id number]
[2018-01-13 16:44] VITALS: BP 134/74
[2018-01-13 19:38] VITALS: BP 148/87
[2018-01-13] MEDS: LACTOBACILLUS RHAMNOSUS GG 1 CAPSULE. PO SCH (20:07)
[2018-01-13] MEDS: MELATONIN 3 MG TABLET PO PRN (20:07)
[2018-01-13 23:05] VITALS: BP 170/85
[2018-01-14 05:22] VITALS: BP 142/81
[2018-01-14] MEDS: POTASSIUM CL 40MEQ IN 0.9%NACL 1,000 ML IV SCH ×3 (05:57→21:32)
[2018-01-14 06:18] LABS: HEMATOCRIT 33.2 % (36.0-47.0); HEMOGLOBIN 11.4 g/dL (12.0-15.5); RED BLOOD COUNT 3.66 x10^6/uL (3.50-5.40); RED CELL DISTRIBUTION WIDTH 13.6 % (11.5-14.5); WHITE BLOOD COUNT 9.1 x10^3/uL (4.0-11.0)
[2018-01-14 07:35] LABS: ALBUMIN 2.5 g/dL (3.4-5.0); ALBUMIN/GLOBULIN RATIO 0.9 (1.0-1.7); CALCIUM 8.2 mg/dL (8.5-10.1); CREATININE 0.6 mg/dL (0.6-1.0); GFR 94.1; POTASSIUM 4.2 mmol/L (3.5-5.1); TOTAL BILIRUBIN 0.6 mg/dL (0.2-1.0); TOTAL PROTEIN 5.2 g/dL (6.4-8.2)
[2018-01-14] MEDS: LACTOBACILLUS RHAMNOSUS GG 1 CAPSULE. PO SCH ×2 (09:00→21:30)
[2018-01-14] MEDS: PROCHLORPERAZINE 10 MG/2 ML VIAL. IV PRN (09:23)
[2018-01-14 10:36] VITALS: BP 154/83
[2018-01-14 14:42] VITALS: BP 165/92
--- NOTE | 2018-01-14 15:37 | RAD ---
INDICATION: Short of breath. TECHNIQUE: Upright portable chest radiograph was obtained. Comparison is from April 23, 2016. FINDINGS: There is mild elevation of the left hemidiaphragm. There is no airspace disease. Study is a lordotic film. Heart is enlarged. There is no definite heart failure. Vertebroplasties are noted. Right axillary clips are noted. Leads overlie the patient. IMPRESSION: No acute thoracic findings. Cardiomegaly. Electronically signed by: Miguel Angel Mendosa MD (01/14/2018 3:34 PM) [facility]
[2018-01-14] MEDS ORDERED: ACETAMINOPHEN 500 MG TABLET PO PRN (16:45)
[2018-01-14] MEDS ORDERED: SODIUM CHLORIDE 0.65% NASAL SPRAY 45ML BOTTLE. NS PRN (16:45)
[2018-01-14] MEDS ORDERED: PROCHLORPERAZINE 5 MG TABLET. PO PRN (16:45)
[2018-01-14] MEDS ORDERED: SUCRALFATE PO SCH (17:00)
[2018-01-14] MEDS: tiZANidine 4 MG TABLET. PO SCH ×2 (17:02→21:29)
[2018-01-14] MEDS: ATENOLOL 25 MG TABLET PO SCH (17:05)
[2018-01-14] MEDS: ALPRAZolam 0.25 MG TABLET PO SCH ×2 (17:05→21:00)
[2018-01-14] MEDS: SUCRALFATE 1 GM/10 ML ORAL.SUSP. PO SCH ×2 (17:05→21:28)
[2018-01-14 19:00] VITALS: BP 96/91
--- NOTE | 2018-01-14 19:16 | PN ---
DATE: 01/14/2018 SUBJECTIVE: The patient is resting slightly propped up in bed, in no apparent respiratory distress. She continued to have dry heaves. She had so far this morning 3 loose bowel movements. She had some abdominal discomfort. Denied any chills, rigors, or fevers. PHYSICAL EXAMINATION: GENERAL: When I examined her, she looked well and was clearly in no apparent distress, slightly pale, but no jaundice, cyanosis, or thyromegaly. No jugular venous distention. No limb edema. VITAL SIGNS: Her heart rate was 87, blood pressure was 154/83, temperature was 98.3, respiratory rate 20, and oxygen saturation was 97% on room air. HEAD, EYES, EARS, NOSE, AND THROAT: Showed normocephalic, atraumatic. NECK: Supple. HEART: Showed normal first and second heart sounds with no gallop, rub, or murmur. CHEST: Clear to auscultation. No crepitation or rhonchi. ABDOMEN: Distended, soft, nontender. Bowel sounds normal. NEUROLOGIC: She is awake, alert, responding appropriately. Cranial nerves intact. She moves extremities without difficulty. Her intake over the last 24 hours was 1970, output was 500. LABORATORY DATA: Her lab work this morning showed a white cell count of 9100, hemoglobin 11.4, hematocrit 33.2, MCV 91, and platelet count of 107,000. Her serum sodium was 134, potassium 4.2, chloride 103, bicarbonate 23, anion gap of 8, BUN 11, creatinine 0.6. Estimated GFR was 94 mL per minute. Her glucose was 102, calcium was 8.2, magnesium was 1.9. Total bilirubin, AST, ALT, alkaline phosphatase are normal. Total protein was 5.2, albumin was 2.5. Her morning cortisol was 30.78 and TSH was normal at 3.563. Urinalysis was unremarkable. Stool for culture and sensitivity as well as C. diff colitis toxin still pending at the time of this dictation. ASSESSMENT: An 87-year-old female patient with recurrent bouts of diarrhea with: 1. Proctocolitis likely due to Clostridium difficile colitis. 2. Hypokalemia, resolving. 3. Hypomagnesemia, resolved. 4. Hyponatremia, resolving. 5. Dehydration, improved. The patient has some crepitation on the left side posteriorly and she seemed to be somewhat tachypneic, although her oxygen saturation was 97%. PLAN: My plan is to check her chest x-ray and repeat all her labs tomorrow. NARESH WHITT MD DR: ACRL/jack JOB#: [id number] / [id number]
[2018-01-14] MEDS: MELATONIN 3 MG TABLET PO SCH (21:30)
[2018-01-14] MEDS: busPIRone 5 MG TABLET. PO SCH (21:30)
[2018-01-14] MEDS: VANCOMYCIN 125 MG/2.5 ML ORAL SOLUTION. PO SCH (22:39)
[2018-01-14 23:00] VITALS: BP 90/53
[2018-01-15 06:13] VITALS: BP 148/83
[2018-01-15 06:51] LABS: CALCIUM 8.3 mg/dL (8.5-10.1); CREATININE 0.7 mg/dL (0.6-1.0); GFR 78.8; POTASSIUM 4.2 mmol/L (3.5-5.1)
[2018-01-15] MEDS: CALCIUM CARBONATE 500 MG TABLET PO SCH ×2 (07:29→11:49)
[2018-01-15] MEDS: tiZANidine 4 MG TABLET. PO SCH ×3 (07:31→20:31)
[2018-01-15] MEDS: busPIRone 5 MG TABLET. PO SCH ×2 (07:31→20:30)
[2018-01-15] MEDS: ALPRAZolam 0.25 MG TABLET PO SCH ×4 (07:32→20:30)
[2018-01-15] MEDS: ATENOLOL 25 MG TABLET PO SCH (07:32)
[2018-01-15] MEDS: VANCOMYCIN 125 MG/2.5 ML ORAL SOLUTION. PO SCH ×4 (07:33→20:30)
[2018-01-15] MEDS: LACTOBACILLUS RHAMNOSUS GG 1 CAPSULE. PO SCH ×3 (07:35→20:30)
[2018-01-15] MEDS: SUCRALFATE 1 GM/10 ML ORAL.SUSP. PO SCH ×4 (07:37→20:30)
[2018-01-15] MEDS: POTASSIUM CL 40MEQ IN 0.9%NACL 1,000 ML IV SCH ×2 (07:37→17:55)
[2018-01-15] MEDS: SERTRALINE 50 MG TABLET. PO SCH (07:38)
[2018-01-15 11:12] VITALS: BP 125/74
[2018-01-15 20:02] VITALS: BP 164/92
[2018-01-15] MEDS: MELATONIN 3 MG TABLET PO SCH (20:30)
--- NOTE | 2018-01-15 22:25 | PN ---
DATE: 01/15/2018 SUBJECTIVE: The patient is resting slightly propped up in bed, in no apparent distress. On questioning her, she denied any nausea, denied any abdominal pain. She did have 1 episode of loose bowel movement this morning and no chills, rigors or fever. Her stool came back positive yesterday and we did start her on oral vancomycin. Her stool for culture was negative for campylobacter and salmonella or Shigella. We did discontinue her levofloxacin and Flagyl. OBJECTIVE: GENERAL: When I examined her this morning, she looked well and was clearly in no apparent respiratory distress, slightly pale, but no jaundice or cyanosis. No thyromegaly. No jugular venous distension. No limb edema. VITAL SIGNS: Her heart rate was 75, blood pressure was 148/83, temperature was 98, respiratory rate was 16, and oxygen saturation was 95% on room air. HEAD, EYES, EARS, NOSE AND THROAT: Showed normocephalic, atraumatic. NECK: Supple. HEART: Showed normal first and second sounds. No gallop, rub or murmur. CHEST: Clear to auscultation. No crepitation or rhonchi. ABDOMEN: Distended, soft, and nontender. No guarding or rigidity. No organomegaly. Hernial orifices intact. Bowel sounds normal. NEUROLOGIC: She is awake, alert, responding appropriately. Cranial nerves intact. She moves extremities without difficulty. She is mostly bed bound. Her intake over the last 24 hours was 1170, output was 1100. LABORATORY DATA: As of this morning, her serum sodium was 132, potassium 4.2, chloride 103, bicarbonate 23, anion gap of 6, BUN 9, creatinine 0.7, estimated GFR was 78 mL per minute. Her glucose was 95, calcium was 8.3. White cell count was 9100, hemoglobin 11, hematocrit 33, MCV 91, and platelet count of 167,000. Her stool for C. diff toxins by PCR was positive. ASSESSMENT: This is an 87-year-old female patient who was admitted with, 1. Recurrent bouts of nausea and vomiting and was found to be positive for Clostridium difficile toxins. She is now on oral vancomycin as well as Lactobacillus. 2. Hypokalemia, resolved. Her most recent serum potassium was 4.2. 3. Hypomagnesemia, resolved. 4. Hyponatremia, her most recent serum sodium is up to 132 mEq per liter. 5. Dehydration, improving. PLAN: To continue the intravenous fluid, continue with oral vancomycin as well as lactobacillus. Continue with all other medication. Advance her diet as tolerated. Start the process of physical and occupational therapy. NARESH WHITT MD DR: CARL/jack JOB#: [id number] / [id number]
[2018-01-16 02:33] VITALS: BP 158/89
[2018-01-16] MEDS: POTASSIUM CL 40MEQ IN 0.9%NACL 1,000 ML IV SCH (05:21)
[2018-01-16 06:51] VITALS: BP 164/91
[2018-01-16 06:59] LABS: CALCIUM 8.3 mg/dL (8.5-10.1); CREATININE 0.6 mg/dL (0.6-1.0); GFR 94.1; MAGNESIUM 1.6 mg/dL (1.8-2.4)
[2018-01-16] MEDS: SUCRALFATE 1 GM/10 ML ORAL.SUSP. PO SCH ×2 (09:12→12:44)
[2018-01-16] MEDS: ALPRAZolam 0.25 MG TABLET PO SCH ×2 (09:13→12:44)
[2018-01-16] MEDS: tiZANidine 4 MG TABLET. PO SCH (09:13)
[2018-01-16] MEDS: LACTOBACILLUS RHAMNOSUS GG 1 CAPSULE. PO SCH (09:13)
[2018-01-16 09:14] VITALS: BP 164/91
[2018-01-16] MEDS: busPIRone 5 MG TABLET. PO SCH (09:14)
[2018-01-16] MEDS: SERTRALINE 50 MG TABLET. PO SCH (09:14)
[2018-01-16] MEDS: ATENOLOL 25 MG TABLET PO SCH (09:14)
[2018-01-16] MEDS: CALCIUM CARBONATE 500 MG TABLET PO SCH ×2 (09:14→12:44)
[2018-01-16] MEDS: VANCOMYCIN 125 MG/2.5 ML ORAL SOLUTION. PO SCH ×2 (09:18→12:44)
[2018-01-16] MEDS ORDERED: VANC125C2 PO (11:09)
--- NOTE | 2018-01-16 20:43 | DS ---
DATE OF DISCHARGE: 01/16/2018 HISTORY OF PRESENT ILLNESS: The patient is an 87-year-old female patient, sister at mother's house, who was seen by her primary care physician, was found to be hyponatremic and had leukocytosis. She did complain of several episodes of diarrhea over the last few days and stated that she has 3 episodes of diarrhea on admission day. Denied any recent use of antibiotic or recent history of C. diff colitis. She was basically admitted, as her CT scan showed that she has acute colitis. We started her initially on ciprofloxacin as well as Flagyl and her stool for C. diff came eventually positive for C. diff colitis, was negative for Shigella, salmonella and Campylobacter antigen. We discontinued her IV Levaquin and Flagyl and started her on oral vancomycin and she did well. Her white cell count came down steadily from 14,600 down to 9000. Her serum sodium has risen from 127 to 133, and her potassium has risen from 3.1 to 4. She was also dehydrated that has resolved, I started her on normal saline with 40 mEq of potassium chloride and she did actually well. Today, she has been tolerating her diet and has been up and about, walked with a walker. She has 3 small loose bowel movements and a decision was made to discharge her back to [facility] to continue treatment as an outpatient. PHYSICAL EXAMINATION: GENERAL: When I saw her this afternoon, she looked well and was clearly in no apparent respiratory distress. No pallor, jaundice, cyanosis, or thyromegaly. No jugular venous distension. No lower limb edema. VITAL SIGNS: Her heart rate was 81, blood pressure was 164/91, temperature was 97.5, respiratory rate was 18 and oxygen saturation was 96% on room air. HEAD, EYES, EARS, NOSE AND THROAT: Showed normocephalic, atraumatic. NECK: Supple. HEART: Showed normal first and second sounds. No gallop, rub or murmur. CHEST: Clear to auscultation. No crepitation or rhonchi. ABDOMEN: Distended, soft, nontender. No guarding or rigidity. No organomegaly. Hernial orifice intact. Bowel sounds normal. NEUROLOGIC: She is awake, alert, responding appropriately. Cranial nerves intact. She moves extremities without difficulty. She ambulates with a walker. Her intake over the last 24 hours was 2460, no output was recorded. Her lab work this morning showed a white cell count of 9100, hemoglobin 11, hematocrit 33, MCV 91, and platelet count 257,000. Serum sodium was 133, potassium 4, chloride 104, bicarbonate 24, anion gap of 5, BUN 8, creatinine 0.6, estimated GFR was 94 mL per minute. Her glucose was 85, calcium was 8.3, and magnesium was 1.6. DISCHARGE MEDICATIONS: She was discharged back to [facility] to continue on vancomycin 125 mg 4 times a day for 14 days, Tylenol 500 mg every 4 hours., alprazolam 0.25 mg 4 times a day, atenolol 12.5 mg daily, buspirone 5 mg twice a day, calcium carbonate 500 mg twice a day, clotrimazole 15 grams cream apply topically twice a day, Colace 200 mg at bedtime as needed for constipation. She is on hydrocodone/APAP 5/325 one tablet every 6 hours as needed, hydrocortisone valerate 15 gram cream apply topically twice a day, lactobacillus acidophilus 1 capsule daily, melatonin 3 mg at bedtime, Preparation-H applied topically as needed for hemorrhoid pain, polyethylene glycol 17 grams daily p.r.n. for constipation, prochlorperazine for Compazine 10 mg every 6 hours as needed, sertraline for Zoloft 50 mg daily, sodium chloride for saline mist 2 sprays to each nostril twice a day, sucralfate 1 gram 4 times a day, tizanidine 4 mg, she takes 2 mg 3 times a day. FINAL DISCHARGE DIAGNOSES: 1. Recurrent bouts of nausea, vomiting secondary to Clostridium difficile colitis for which she is now on oral vancomycin as well as Lactobacillus. 2. Hypokalemia, resolved. Her most recent serum potassium is 4. 3. Hypomagnesemia, resolved. Most recent serum magnesium was 1.6. 4. Hyponatremia with most recent serum sodium is up to 133 mEq per liter. 5. Dehydration, has improved. NARESH WHITT MD DR: CARL/jack JOB#: [id number] / [id number]
== END 2018-01-16 13:00 | DRG 372 ==
LOC: ER 15:18 → 1 SOUTH 18:00
PROVIDERS: ADMIT Internal Medicine; ATTEND Internal Medicine
DX: A04.72 Enterocolitis due to Clostridium difficile, not specified as recurrent (principal); E87.1 Hypo-osmolality and hyponatremia; F32.9 Major depressive disorder, single episode, unspecified; F41.9 Anxiety disorder, unspecified; M19.90 Unspecified osteoarthritis, unspecified site; E83.42 Hypomagnesemia; E86.0 Dehydration; E87.6 Hypokalemia; K21.9 Gastro-esophageal reflux disease without esophagitis; N20.0 Calculus of kidney; Z88.6 Allergy status to analgesic agent; Z88.1 Allergy status to other antibiotic agents; Z88.0 Allergy status to penicillin; Z88.8 Allergy status to other drugs, medicaments and biological substances; Z91.048 Other nonmedicinal substance allergy status; Z90.49 Acquired absence of other specified parts of digestive tract; Z87.440 Personal history of urinary (tract) infections
CPT/HCPCS: 36415; 71045; 74177; 80048; 80053; 81001; 82533; 83690; 83735; 84443; 85025; 85027; 87045; 87324; 87641; 96365; 96375; J0780; J1956; J2270; J3475; J3480; J3490; Q9967; 97110; 97116; 97530; 97535; 99285-25; J7030